=== PATIENT | female | born 1950 | race Caucasian/White ===

== ENCOUNTER 2020-11-15 12:11 | Emergency (ER) | payer BC, OTHER ==
[2020-11-15 12:24] VITALS: BP 123/82; PULSE 71; TEMP 97.6; BMI 26.5
[2020-11-15] MEDS ORDERED: ACETAMINOPHEN 500 MG TABLET (FP) PO ONE (13:46)
[2020-11-15] MEDS ORDERED: ACETAMINOPHEN 500 MG TABLET (FP) ONE (13:49)
== END 2020-11-15 16:05 | disposition home or self-care (01) ==
LOC: JERFT 12:11
DX: S09.90XA Unspecified injury of head, initial encounter (principal); W01.0XXA Fall on same level from slipping, tripping and stumbling without subsequent striking against object, initial encounter; Y93.02 Activity, running
CPT/HCPCS: 70450-TC; 99284-25

== ENCOUNTER 2021-01-11 07:19 | Day surgery (SDC) | payer BC ==
[2020-12-21 16:42] VITALS: BMI 26.5
[2021-01-11] MEDS ORDERED: MIDAZOLAM HCL 2 MG/2 ML SINGLE DOSE VIAL ONE (08:45)
[2021-01-11] MEDS ORDERED: PROPOFOL 20 ML ONE (08:45)
[2021-01-11] MEDS ORDERED: ONDANSETRON 4 MG/2 ML VIAL ONE (08:46)
[2021-01-11] MEDS ORDERED: DEXAMETHASONE SOD PHOSPHATE 4 MG/1 ML VIAL ONE (08:46)
[2021-01-11] MEDS ORDERED: oxyCODONE HCL 5 MG TABLET PO PRN ×2 (09:35)
[2021-01-11] MEDS ORDERED: ACETAMINOPHEN 500 MG TABLET (FP) PO PRN (09:35)
[2021-01-11] MEDS ORDERED: ONDANSETRON 4 MG/2 ML VIAL IVPUSH PRN (09:35)
[2021-01-11 09:40] VITALS: TEMP 97.8
[2021-01-11] MEDS ORDERED: LACTATED RINGERS SOLUTION 1,000 ML IV SCH (09:45)
[2021-01-11 09:53] VITALS: BP 122/68
[2021-01-11 12:28] VITALS: PULSE 68
== END 2021-01-11 10:32 | disposition home or self-care (01) ==
LOC: FASU 07:19
PROVIDERS: ATTEND Orthopaedic Surgery Hand Surgery
PROC: 0LB80ZZ Excision of Left Hand Tendon, Open Approach (ICD-10-PCS; principal; 2021-01-11 09:09)
DX: D48.1 Neoplasm of uncertain behavior of connective and other soft tissue (principal)
CPT/HCPCS: 88305-TC